=== PATIENT | female | born 1960 | race Caucasian/White ===

== ENCOUNTER 2017-08-01 16:08 | Emergency (ER) | payer OTHER ==
[~2017-08-01] VITALS: Ht 157.5 cm; Wt 73.0 kg
[~2017-08-01 16:08] MED LIST: AMLO5TAB4 PO; CLIN-73 PO
[2017-08-01 16:11] VITALS: Ht 157.5 cm; Wt 73.0 kg
[2017-08-01] MEDS ORDERED: ACET500C5 PO (17:24)
[2017-08-01] MEDS ORDERED: AZIT250T94 PO (17:24)
[2017-08-01] MEDS ORDERED: D-ME473S2 PO (17:24)
[2017-08-01] MEDS ORDERED: ONDANSETRON (ODT) 4 MG TAB ODT STA (17:27)
[2017-08-01] MEDS ORDERED: ACETAMINOPHEN 500 MG TAB PO STA (17:27)
--- NOTE | 2017-08-01 17:29 | ERD ---
ER Documentation Chief Complaint Chief Complaint Pt with Flu like symptoms X 5 days. HPI 56-year-old female presents with a productive cough for last 5 days. She has fever and posttussive vomiting as well. She denies abdominal pain, diarrhea, urinary complaints, neck stiffness, rashes. ROS All systems reviewed and are negative except as per history of present illness. Medications Home Meds Active Scripts Acetaminophen* (Tylophen*) 500 Mg Capsule, 1 CAP PO Q6H Y for PAIN AND OR ELEVATED TEMP, #15 CAP Prov:EHSAN MÁRQUEZ MD 08/01/17 Dextromethorphan Hb-Promethazine Hcl* (Promethazine DM* Syrup) 473 Ml Syrup, 5 ML PO Q6 Y for COUGH for 5 Days, ML Prov:EHSAN MÁRQUEZ MD 08/01/17 Azithromycin* (Zithromax*) 250 Mg Tablet, 250 MG PO .ZPACK DIRECTED, #6 TAB TAKE 500 MG (2 TABS) THE FIRST DAY THEN 250 MG (1 TAB) DAYS 2-5 Prov:EHSAN MÁRQUEZ MD 08/01/17 Amlodipine Besylate* (Norvasc*) 5 Mg Tablet, 5 MG PO DAILY for 14 Days, TAB Prov:BLACK SPENCER MD 04/24/15 Clindamycin Hcl* (Clindamycin Hcl*) 300 Mg Capsule, 300 MG PO Q6 for 10 Days, CAP Prov:BLACK SPENCER MD 04/24/15 Allergies Allergies: Coded Allergies: No Known Allergy (Unverified , 04/24/15) PMhx/Soc History of Surgery: Yes (GALLSTONES, ) Anesthesia Reaction: No Hx Neurological Disorder: No Hx Respiratory Disorders: No Hx Cardiac Disorders: No Hx Psychiatric Problems: No Hx Miscellaneous Medical Probl: No Hx Alcohol Use: No Hx Substance Use: No Hx Tobacco Use: No Physical Exam Vitals Vital Signs Date Time Temp Pulse Resp B/P Pulse Ox O2 Delivery O2 Flow Rate FiO2 08/01/17 16:11 98.8 96 20 148/94 95 Physical Exam Const: [] Alert, [id number]. Head: Atraumatic Eyes: Normal Conjunctiva ENT: Normal External Ears, Nose and Mouth. Neck: Full range of motion..~ No meningismus. Resp: Clear to auscultation bilaterally Cardio: Regular rate and rhythm, no murmurs Abd: Soft, non tender, non distended. Normal bowel sounds Skin: No petechiae or rashes Back: No midline or flank tenderness Ext: No cyanosis, or edema Neur: Awake and alert Psych: Normal Mood and Affect Procedures/MDM She presents with a productive cough last week. No signs of hypoxemia or respiratory distress signs to suggest pneumonia or additional emergent causes of presenting complaints. She may have a lingering viral illness, but she will be treated given the duration of Zithromax, promethazine and Tylenol and further observation at home. She was given Zofran and Tylenol here for posttussive vomiting and myalgias.. The patient was stable with no new complaints during the ER course. Clinically, there is no current evidence to suggest meningitis, sepsis, acute abdomen, pneumonia, acute coronary syndrome, pulmonary embolism, or any other emergent condition appearing to require further evaluation or hospitalization. The patient should certainly return for any new or worsening symptoms per the aftercare instructions. They should otherwise follow-up with her primary care doctor for reevaluation this week. Departure Diagnosis: Primary Impression: Upper respiratory infection URI type: unspecified URI Qualified Code: J06.9 - Upper respiratory tract infection, unspecified type Condition: Stable Patient Instructions: Acute Bronchitis Additional Instructions: Cheque otro vez con martinez doctor primario en el proximo ace or regresa para mas o nueva simptomas. EHSAN MÁRQUEZ MD Aug 01, 2017 17:29
[2017-08-01 18:45] VITALS: BP 132/88; PULSE 77; RESP 18; TEMP 98.8
== END 2017-08-01 18:46 | disposition home or self-care (01) ==
LOC: FTE 16:08
DX: J06.9 Acute upper respiratory infection, unspecified (principal)
CPT/HCPCS: Z7502; Z7610; 99284